=== PATIENT | male | born 1990 | race Caucasian/White ===

== ENCOUNTER 2024-08-22 08:44 | Day surgery (SDC) | payer BC ==
[~2024-08-22] VITALS: Ht 175.3 cm; Wt 91.2 kg
[2024-08-22] MEDS ORDERED: LIDOCAINE 2% 100MG/5ML SDV (FOR ANES.) As Ordered ONE (08:56)
[2024-08-22] MEDS ORDERED: propofoL 200 MG/20 ML VIAL As Ordered ONE (08:56)
[2024-08-22] MEDS ORDERED: fentaNYL 100 MCG/2 ML INJECTION As Ordered ONE (08:56)
[2024-08-22 11:19] VITALS: TEMP 98
[2024-08-22 11:37] VITALS: BP 134/87; O2SAT 97
== END 2024-08-22 11:40 | disposition home or self-care (01) ==
LOC: M OPP 08:44
PROVIDERS: ATTEND Internal Medicine Gastroenterology
DX: R11.2 Nausea with vomiting, unspecified (principal); K22.89 Other specified disease of esophagus; K22.10 Ulcer of esophagus without bleeding; K20.90 Esophagitis, unspecified without bleeding
CPT/HCPCS: 43239; 88305; J3010